=== PATIENT | male | born 1990 | race Caucasian/White ===

== ENCOUNTER 2018-12-10 17:37 | Emergency (ER) | payer BC, OTHER ==
[~2018-12-10] VITALS: Ht 175.3 cm; Wt 104.8 kg
[2018-12-10 17:44] VITALS: BP 132/88
[2018-12-10] MEDS ORDERED: KETOROLAC 15 MG/ML VIAL IM ONE (19:35)
[2018-12-10 21:19] VITALS: BP 126/83
== END 2018-12-10 21:19 | disposition home or self-care (01) ==
LOC: MED 17:37
DX: S29.9XXA Unspecified injury of thorax, initial encounter (principal); W18.40XA Slipping, tripping and stumbling without falling, unspecified, initial encounter; Y93.89 Activity, other specified; Y92.89 Other specified places as the place of occurrence of the external cause; Y99.8 Other external cause status
CPT/HCPCS: 71101; 74176; 96372; 99284; J1885

== ENCOUNTER 2019-05-27 19:17 | Emergency (ER) | payer OTHER ==
[~2019-05-27] VITALS: Ht 170.2 cm; Wt 96.6 kg
[2019-05-27 19:29] VITALS: BP 131/81
[2019-05-27] MEDS ORDERED: KETOROLAC 30 MG/ML VIAL IM ONE (19:45)
[2019-05-27 20:18] VITALS: BP 131/81
== END 2019-05-27 20:18 | disposition home or self-care (01) ==
LOC: MED 19:17
DX: S10.83XA Contusion of other specified part of neck, initial encounter (principal); S40.012A Contusion of left shoulder, initial encounter; W22.8XXA Striking against or struck by other objects, initial encounter; Y93.89 Activity, other specified; Y92.69 Other specified industrial and construction area as the place of occurrence of the external cause; Y99.8 Other external cause status
CPT/HCPCS: 96372; 99283; J1885

== ENCOUNTER 2019-05-31 19:58 | Emergency (ER) | payer OTHER ==
[~2019-05-31] VITALS: Ht 175.3 cm; Wt 104.3 kg
[2019-05-31 20:17] VITALS: BP 152/78
[2019-05-31] MEDS ORDERED: KETOROLAC 30 MG/ML VIAL IM ONE (21:00)
[2019-05-31 22:17] VITALS: BP 152/78
== END 2019-05-31 22:16 | disposition home or self-care (01) ==
LOC: MED 19:58
DX: M25.512 Pain in left shoulder (principal); R20.2 Paresthesia of skin; R53.1 Weakness
CPT/HCPCS: 73030; 96372; 99283; J1885; Q0092

== ENCOUNTER 2019-11-09 17:03 | Emergency (ER) | payer OTHER ==
[~2019-11-09] VITALS: Ht 175.3 cm; Wt 106.6 kg
[2019-11-09 17:04] VITALS: BP 122/73
--- NOTE | 2019-11-09 17:06 | NUR ---
PT AMBULATED TO ER BED 07
--- NOTE | 2019-11-09 17:16 | NUR ---
29 y/o male from home c/o "mass" to right shoulder. Pt states mass began to form after receiving Toradol shot 4 mo ago. States 6/10 sharp pain, worse when palpated. Noticable mass on shoulder. Redness noted to region. Skin warm, dry, and intact. VSS medhx: denies
--- NOTE | 2019-11-09 17:17 | NUR ---
Dr Connelly at bedside examining pt
[2019-11-09 17:23] VITALS: BP 122/73
--- NOTE | 2019-11-09 17:24 | NUR ---
Patient discharged with v/s stable. Written and verbal after care instructions given and explained. Patient verbalized understanding. Ambulatory with steady gait. All questions addressed prior to discharge. Advised to follow up with PMD.
== END 2019-11-09 17:24 | disposition home or self-care (01) ==
LOC: MED 17:03
DX: D17.21 Benign lipomatous neoplasm of skin and subcutaneous tissue of right arm (principal)
CPT/HCPCS: 99284